=== PATIENT | male | born 1990 | race Caucasian/White ===

== ENCOUNTER 2017-04-17 20:15 | Emergency (ER) | payer BC, SELFPAY ==
[2017-04-17] MEDS ORDERED: Bacitracin Zinc 1 Packet ONE (21:30)
[2017-04-17] MEDS ORDERED: Lidocaine 1% PF 5 ML VIAL ONE (21:30)
== END 2017-04-17 22:04 | disposition home or self-care (01) ==
LOC: ERS 20:15
DX: S61.217A Laceration without foreign body of left little finger without damage to nail, initial encounter (principal); E10.9 Type 1 diabetes mellitus without complications; W26.8XXA Contact with other sharp object(s), not elsewhere classified, initial encounter
CPT/HCPCS: 99282; J2001